=== PATIENT | female | born 1995 | race Native Hawaiian/Other Pacific Islander ===

== ENCOUNTER 2021-07-12 13:39 | Emergency (ER) | payer OTHER ==
[~2021-07-12] VITALS: Ht 162.6 cm; Wt 135.2 kg
[2021-07-12 13:43] VITALS: BP 120/64; TEMP 98
== END 2021-07-12 15:00 | disposition home or self-care (01) ==
LOC: ED 13:39
PROC: 0HQEXZZ Repair Left Lower Arm Skin, External Approach (ICD-10-PCS; principal; 2021-07-12)
DX: S51.812A Laceration without foreign body of left forearm, initial encounter (principal); W26.8XXA Contact with other sharp object(s), not elsewhere classified, initial encounter; Y92.89 Other specified places as the place of occurrence of the external cause
CPT/HCPCS: 99283

== ENCOUNTER 2023-05-14 16:32 | Emergency (ER) | payer OTHER ==
[~2023-05-14] VITALS: Ht 162.6 cm; Wt 110.7 kg
[2023-05-14 16:51] VITALS: TEMP 97.3
[2023-05-14 17:16] LABS: PLATELET COUNT 365 K/uL (152-353)
[2023-05-14 17:19] LABS: POTASSIUM 3.7 mmol/L (3.6-5.2)
[2023-05-14 22:00] VITALS: BP 132/74
== END 2023-05-14 22:00 | disposition home or self-care (01) ==
LOC: ED 16:32
PROVIDERS: Family Medicine
DX: R10.30 Lower abdominal pain, unspecified (principal)
CPT/HCPCS: 80053; 81000; 81025; 83690; 84702; 85027; 87590; 96360; 99284; Q9963